=== PATIENT | female | born 1985 | race Caucasian/White ===

== ENCOUNTER 2018-05-03 20:37 | Emergency (ER) | payer OTHER ==
[~2018-05-03] VITALS: Ht 160 cm; Wt 81.6 kg
[2018-05-03] MEDS ORDERED: CLARITIN5 MG (20:41)
== END 2018-05-03 22:02 | disposition home or self-care (01) ==
LOC: ER 20:37
DX: F06.4 Anxiety disorder due to known physiological condition (principal); F20.9 Schizophrenia, unspecified